=== PATIENT | female | born 1990 | race Caucasian/White ===

== ENCOUNTER 2017-04-22 14:53 | Emergency (ER) | payer OTHER ==
[2017-04-22 15:03] VITALS: BP 132/74; PULSE 97; RESP 18; TEMP 97.9
[2017-04-22] MEDS ORDERED: KETOROLAC 30 MG/ML 1 ML VIAL IVP STA (15:28)
[2017-04-22] MEDS ORDERED: SODIUM CHLORIDE 0.9% 1,000 ML IV STA (15:28)
--- NOTE | 2017-04-22 15:31 | ED ---
General Adult HPI - General Chief complaint: Abdominal Pain Stated complaint: left side pain/spotting Time Seen by Provider: 04/22/17 15:08 Source: patient, RN notes reviewed Mode of arrival: ambulatory Limitations: no limitations - History of Present Illness Initial comments: Patient 26-year-old female with no significant past medical history, presenting today with chief complaint of left lower quadrant pain that began approximately one hour ago. She admits to a "contraction" like pain in proximal hour ago. Patient states that it's been constant. Currently rates it 08/21. Denies any radiation. Patient admits to increased urinary frequency. Denies any other associated symptoms. Patient denies any recent fever, chills, shortness of breath, chest pain, back pain, nausea or vomiting, numbness or tingling, hematuria, constipation or diarrhea, headaches or visual changes, or any other complaints. - Related Data Home Medications Medication Instructions Recorded Confirmed ALPRAZolam [Xanax] 0.25 mg PO Q8HR PRN 04/22/17 04/22/17 Acetaminophen [Tylenol Extra 1,000 mg PO Q6H PRN 04/22/17 04/22/17 Strength] Phentermine HCl [Adipex-P] 37.5 mg PO QAM PRN 04/22/17 04/22/17 Allergies Allergy/AdvReac Type Severity Reaction Status Date / Time No Known Allergies Allergy Verified 04/22/17 15:30 Review of Systems ROS Statement: Those systems with pertinent positive or pertinent negative responses have been documented in the HPI. ROS Other: All systems not noted in ROS Statement are negative. Past Medical History Past Medical History: No Reported History Additional Past Medical History / Comment(s): miscarriage of twins in august 2013 , ectopic History of Any Multi-Drug Resistant Organisms: None Reported Past Surgical History: Ear Surgery Additional Past Surgical History / Comment(s): ear Past Psychological History: No Psychological Hx Reported Smoking Status: Current every day smoker Past Alcohol Use History: None Reported Past Drug Use History: None Reported General Exam - General Exam Comments Initial Comments: General: The patient is awake and alert, in no distress, and does not appear acutely ill. Eye: Pupils are equal, round and reactive to light, extra-ocular movements are intact. No nystagmus. There is normal conjunctiva bilaterally. Ears, nose, mouth and throat: There are moist mucous membranes and no oral lesions. Neck: The neck is supple, there is no tenderness or JVD. Cardiovascular: There is a regular rate and rhythm. No murmur, rub or gallop is appreciated. Respiratory: Lungs are clear to auscultation, respirations are non-labored, breath sounds are equal. No wheezes, stridor, rales, or rhonchi. Gastrointestinal: Soft, non-distended. Mild tenderness on exam to left lower quadrant. No rebound tenderness. No guarding. No CVA tenderness. Musculoskeletal: Normal ROM, no tenderness. Strength 5/5. Sensation intact. Pulses equal bilaterally 2+. Neurological: A&O x 3. CN II-XII intact, There are no obvious motor or sensory deficits. Coordination appears grossly intact. Speech is normal. Skin: Skin is warm and dry and no rashes or lesions are noted. Psychiatric: Cooperative, appropriate mood & affect, normal judgment. Limitations: no limitations Course Vital Signs 04/22/17 14:59 Temperature 97.9 F Pulse Rate 97 Respiratory 18 Rate Blood Pressure 132/74 O2 Sat by Pulse 100 Oximetry Medical Decision Making - Medical Decision Making Patient 26-year-old female presenting today with chief complaint of left lower quadrant tenderness or hour before coming here to the emergency room. Patient' s urine sample was positive for . Beta hCG was added 2500. Patient's ultrasound does show evidence for ectopic . 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 Simms will give dose of methotrexate here in the emergency room and discharged patient to follow-up in the office. - Lab Data Result diagrams: 04/22/17 15:41 04/22/17 15:41 Lab Results 04/22/17 04/22/17 04/22/17 Range/Units 15:41 15:41 15:41 WBC 13.5 H (3.8-10.6) k/uL RBC 4.82 (3.80-5.40) m/uL Hgb 14.6 (11.4-16.0) gm/dL Hct 42.5 (34.0-46.0) % MCV 88.2 (80.0-100.0) fL MCH 30.3 (25.0-35.0) pg MCHC 34.4 (31.0-37.0) g/dL RDW 13.0 (11.5-15.5) % Plt Count 238 (150-450) k/uL Neutrophils % 79 % Lymphocytes % 13 % Monocytes % 4 % Eosinophils % 3 % Basophils % 0 % Neutrophils # 10.7 H (1.3-7.7) k/uL Lymphocytes # 1.8 (1.0-4.8) k/uL Monocytes # 0.5 (0-1.0) k/uL Eosinophils # 0.4 (0-0.7) k/uL Basophils # 0.0 (0-0.2) k/uL Sodium 142 (137-145) mmol/L Potassium 4.1 (3.5-5.1) mmol/L Chloride 107 (98-107) mmol/L Carbon Dioxide 23 (22-30) mmol/L Anion Gap 12 mmol/L BUN 13 (7-17) mg/dL Creatinine 0.79 (0.52-1.04) mg/dL Est GFR (CKD-EPI)AfAm >90 (>60 ml/min/1.73 sqM) Est GFR (CKD-EPI)NonAf >90 (>60 ml/min/1.73 sqM) Glucose 87 (74-99) mg/dL Calcium 9.5 (8.4-10.2) mg/dL Total Bilirubin 0.8 (0.2-1.3) mg/dL AST 24 (14-36) U/L ALT 35 (9-52) U/L Alkaline Phosphatase 61 (38-126) U/L Total Protein 7.3 (6.3-8.2) g/dL Albumin 4.5 (3.5-5.0) g/dL Amylase 34 (30-110) U/L Lipase 53 (23-300) U/L HCG, Quant 2524.8 mIU/mL Urine Color Urine Appearance (Clear) Urine pH (5.0-8.0) Ur Specific Graham (1.001-1.035) Urine Protein (Negative) Urine Glucose (UA) (Negative) Urine Ketones (Negative) Urine Blood (Negative) Urine Nitrite (Negative) Urine Bilirubin (Negative) Urine Urobilinogen (<2.0) mg/dL Ur Leukocyte Esterase (Negative) Urine WBC (0-5) /hpf Ur Squamous Epith Cells (0-4) /hpf Amorphous Sediment (None) /hpf Urine Mucus (None) /hpf Urine HCG, Qual (Not Detectd) Blood Type Blood Type Recheck 04/22/17 04/22/17 04/22/17 Range/Units 15:41 15:45 15:45 WBC (3.8-10.6) k/uL RBC (3.80-5.40) m/uL Hgb (11.4-16.0) gm/dL Hct (34.0-46.0) % MCV (80.0-100.0) fL MCH (25.0-35.0) pg MCHC (31.0-37.0) g/dL RDW (11.5-15.5) % Plt Count (150-450) k/uL Neutrophils % % Lymphocytes % % Monocytes % % Eosinophils % % Basophils % % Neutrophils # (1.3-7.7) k/uL Lymphocytes # (1.0-4.8) k/uL Monocytes # (0-1.0) k/uL Eosinophils # (0-0.7) k/uL Basophils # (0-0.2) k/uL Sodium (137-145) mmol/L Potassium (3.5-5.1) mmol/L Chloride (98-107) mmol/L Carbon Dioxide (22-30) mmol/L Anion Gap mmol/L BUN (7-17) mg/dL Creatinine (0.52-1.04) mg/dL Est GFR (CKD-EPI)AfAm (>60 ml/min/1.73 sqM) Est GFR (CKD-EPI)NonAf (>60 ml/min/1.73 sqM) Glucose (74-99) mg/dL Calcium (8.4-10.2) mg/dL Total Bilirubin (0.2-1.3) mg/dL AST (14-36) U/L ALT (9-52) U/L Alkaline Phosphatase (38-126) U/L Total Protein (6.3-8.2) g/dL Albumin (3.5-5.0) g/dL Amylase (30-110) U/L Lipase (23-300) U/L HCG, Quant mIU/mL Urine Color Yellow Urine Appearance Turbid H (Clear) Urine pH 7.5 (5.0-8.0) Ur Specific Graham 1.020 (1.001-1.035) Urine Protein Trace H (Negative) Urine Glucose (UA) Negative (Negative) Urine Ketones Negative (Negative) Urine Blood Moderate H (Negative) Urine Nitrite Negative (Negative) Urine Bilirubin Negative (Negative) Urine Urobilinogen <2.0 (<2.0) mg/dL Ur Leukocyte Esterase Large H (Negative) Urine WBC 12 H (0-5) /hpf Ur Squamous Epith Cells 11 H (0-4) /hpf Amorphous Sediment Occasional H (None) /hpf Urine Mucus Rare H (None) /hpf Urine HCG, Qual Detected (Not Detectd) Blood Type O Positive Blood Type Recheck No Disposition Clinical Impression: Ectopic Disposition: HOME SELF-CARE Condition: Good Instructions: Ectopic (ED) Additional Instructions: Please follow-up with MACHINE OPERATOR CANE CUTTER as discussed here in emergency room. Please return to emergency room if any symptoms increase or worsen or for any other concerns. Referrals: None,Stated [Primary Care Provider] - 1-2 days Humberto Mccall MD [STAFF PHYSICIAN] - 1-2 days Time of Disposition: 19:30
[2017-04-22 15:50] LABS: Basophils % (A) 0 %; Eosinophils # (A) 0.4 k/uL (0-0.7); Eosinophils % (A) 3 %; HCT 42.5 % (34.0-46.0); HGB 14.6 gm/dL (11.4-16.0); Lymphocytes # (A) 1.8 k/uL (1.0-4.8); Lymphocytes % (A) 13 %; MCH 30.3 pg (25.0-35.0); MCHC 34.4 g/dL (31.0-37.0); MCV 88.2 fL (80.0-100.0); Mean Platelet Volume 7.7; Monocytes # (A) 0.5 k/uL (0-1.0); Monocytes % (A) 4 %; Neutrophils # (A) 10.7 k/uL (1.3-7.7); Neutrophils % (A) 79 %; Platelet Count 238 k/uL (150-450); RBC 4.82 m/uL (3.80-5.40); WBC 13.5 k/uL (3.8-10.6)
[2017-04-22 16:00] LABS: ALT 35 U/L (9-52); AST 24 U/L (14-36); Albumin 4.5 g/dL (3.5-5.0); Alkaline Phosphatase 61 U/L (38-126); Amylase 34 U/L (30-110); Anion Gap 12 mmol/L; Blood Urea Nitrogen 13 mg/dL (7-17); Calcium 9.5 mg/dL (8.4-10.2); Carbon Dioxide 23 mmol/L (22-30); Chloride 107 mmol/L (98-107); Glucose 87 mg/dL (74-99); Lipase 53 U/L (23-300); Potassium 4.1 mmol/L (3.5-5.1); Sodium 142 mmol/L (137-145); Total Bilirubin 0.8 mg/dL (0.2-1.3); Total Protein 7.3 g/dL (6.3-8.2)
[2017-04-22 16:05] LABS: Amorphous Sediment,Urine Occasional /hpf; Appearance,Urine Turbid (Clear); Bilirubin,Urine Negative (Negative); Blood,Urine Moderate (Negative); Color,Urine Yellow; Glucose,Urine (UA) Negative (Negative); Ketones,Urine Negative (Negative); Leukocyte Esterase,Urine Large (Negative); Mucus,Urine Rare /hpf; Nitrite,Urine Negative (Negative); PH, Urine 7.5 (5.0-8.0); Protein,Urine Trace (Negative); Squamous Epithelial Cell,Urine 11 /hpf (0-4); Urobilinogen,Urine <2.0 mg/dL (<2.0); WBC,Urine 12 /hpf (0-5)
--- NOTE | 2017-04-22 16:59 | US ---
EXAMINATION TYPE: US OB <=14 wks transvag DATE OF EXAM: 04/22/2017 COMPARISON: NONE CLINICAL HISTORY: pain. Left sided pain. Exam was ordered as transvaginal through the ER, but received a call urine HCG was positive at end of transvaginal exam. EXAM PERFORMED: Transvaginal (TV) and Transabdominal (TA) EXAM MEASUREMENTS: GESTATIONAL AGE / DATING Dates by LMP: (6 weeks/5 days) EDC: 12/11/2017 Dates by Current Scan: No IUP seen MATERNAL ANATOMY Uterus: 9.6 x 6.5 x 5.4 cm Right Ovary: 3.1 x 1.8 x 2.2 cm Left Ovary: 3.7 x 2.8 x 2.6 cm Post CDS / Adnexa: Free fluid Presence of free fluid: cul de sac Presence of corpus luteal cyst: Left ovarian lesion = 2.1 x 2.1 x 2.0 cm GESTATION / SURVEY MSD: No GS seen in the uterus IUP: No IUP seen at this time Date of LMP: 03/06/2017, Beta HcG (if available): Not available at this time No IUP seen. Endometrium appears thickened with movement seen. Complex lesion seen between uterus a nd left ovary - 1.4 x 1.2 x 1.1 cm with yolk sac and gestational sac. IMPRESSION: Acute left-sided adnexal ectopic . Gestational sac and yolk sac within the left adnexa heavenly tible with ectopic adjacent to the left ovary. Moderate amount of complex fluid within the pelvis can be seen in rupture cases. Thickening of the endometrium represents decidual reaction. Find ings were communicated with the ER physician Dr. Dove by Dr. Maharaj at 1654 PM on 04/22/2017.
[2017-04-22] MEDS ORDERED: METHOTREXATE SODIUM (PF) 25 MG/ML 2 ML VIAL IM ONE (19:24)
--- NOTE | 2017-04-22 19:24 | P.OBCN ---
History of Present Illness Consult date: 04/22/17 Requesting physician: Wagner Dove Reason for consult: other (Left ectopic ) Chief complaint: Acute left lower quadrant pain History of present illness: The patient is a 26-year-old 9 para 2151 who presented to the emergency room today with some acute left lower quadrant pain. Her last menstrual period was around March 06 but she has a history of very irregular menses. She was not aware that she was . In the emergency department, she was found the hormone level in the range of 2300. Pelvic ultrasound demonstrated what appears to be a left ectopic measuring 1.4 cm in greatest dimension, likely in the ampulla of the left fallopian tube. There was some free fluid in the cul-de-sac. She does have a history of a previous left ectopic discovered early on and treated with methotrexate. She denies any significant nausea and vomiting and has no secondary illnesses that would contraindicate methotrexate again. She has had multiple miscarriages as well as the previous ectopic but has had a normal vaginal delivery since her last ectopic . She is reporting some vaginal bleeding but has no other secondary symptoms to include GI concerns or nausea and vomiting. There is no urinary complaints either. Obstetrical history: 9 para 2152 with 2 term vaginal deliveries, a 21 week loss of twins, 4 miscarriages some requiring D&C, and 1 ectopic treated with methotrexate. As noted above, she was unaware of being at this time and has no other symptoms. She has not been using contraception. Gynecologic history: She has remote history of chlamydia as a teenager but denies any STDs since that time. Review of Systems Review of systems is confined to history of present illness. Past Medical History Past Medical History: No Reported History Additional Past Medical History / Comment(s): miscarriage of twins in august 2013 , ectopic History of Any Multi-Drug Resistant Organisms: None Reported Past Surgical History: Ear Surgery Additional Past Surgical History / Comment(s): ear Past Psychological History: No Psychological Hx Reported Smoking Status: Current every day smoker Past Alcohol Use History: None Reported Past Drug Use History: None Reported Medications and Allergies Home Medications Medication Instructions Recorded Confirmed Type ALPRAZolam [Xanax] 0.25 mg PO Q8HR PRN 04/22/17 04/22/17 History Acetaminophen [Tylenol Extra 1,000 mg PO Q6H PRN 04/22/17 04/22/17 History Strength] Phentermine HCl [Adipex-P] 37.5 mg PO QAM PRN 04/22/17 04/22/17 History Allergies Allergy/AdvReac Type Severity Reaction Status Date / Time No Known Allergies Allergy Verified 04/22/17 15:30 Exam - Vital Signs Vital signs: Vital Signs Temp Pulse Resp BP Pulse Ox 04/22/17 14:59 97.9 F 97 18 132/74 100 Intake and Output 04/22/17 04/22/17 04/22/17 06:59 14:59 22:59 Other: Weight 99.79 kg Patient Weight 04/23/17 06:59 Weight 99.79 kg In general, this is a well-developed, mild to moderately obese white female in no acute distress. Her heart has a regular rhythm and rate without murmur. Her lungs are clear to auscultation bilaterally in all bella. Her abdomen is mild to moderately obese, non-distended, has normal active bowel sounds, is soft , nontender, and without any palpable masses, hepatosplenomegaly, or hernias. There is no guarding or rebound. Her extremities are without any cyanosis, clubbing, or edema and are nontender to palpation bilaterally. Bimanual pelvic examination done traits normal external genitalia and BUS with normal vaginal mucosa and cervix to palpation. There is no cervical motion tenderness. Uterus is approximate 5 weeks in size, midplane, mobile, nontender, normal in shape. The adnexa are normal and nontender without mass or tenderness bilaterally. Results Result Diagrams: 04/22/17 15:41 04/22/17 15:41 Abnormal Lab Results - Last 24 Hours (Table) 04/22/17 04/22/17 Range/Units 15:41 15:45 WBC 13.5 H (3.8-10.6) k/uL Neutrophils # 10.7 H (1.3-7.7) k/uL Urine Appearance Turbid H (Clear) Urine Protein Trace H (Negative) Urine Blood Moderate H (Negative) Ur Leukocyte Esterase Large H (Negative) Urine WBC 12 H (0-5) /hpf Ur Squamous Epith Cells 11 H (0-4) /hpf Amorphous Sediment Occasional H (None) /hpf Urine Mucus Rare H (None) /hpf Assessment and Plan (1) Ectopic Current Visit: Yes Status: Acute Code(s): O00.90 - UNSPECIFIED ECTOPIC WITHOUT INTRAUTERINE SNOMED Code(s): 78369246 Plan: The size of the gestational sac at a maximum of 1.4 cm as well as the beta hCG at under 5000 units make her perfect candidate for methotrexate therapy. She is entirely hemodynamically stable. She has experience with this treatment in the past. I have counseled her regarding the options but feel that a surgical approach would be possibly fruitless given the size of the ectopic , it may not be located laparoscopically. As result, we have agreed to proceed with methotrexate therapy. She will be given a dose of 50 mg per meter squared , dosing to be done by pharmacy, intramuscularly 1 dose. All necessary labs including type and screen, CBC, AST and ALT, and beta-hCG had been performed. I have asked her to follow up in my office in 1 week's time for repeat beta hCG. She was given warning signs for potential rupture with significantly increasing pain or signs of orthostasis. I did warn her that she may have some slightly increased pain before the pain begins to improved secondary to involution of the . She has understood all this and agreed to proceed. Following administration of the methotrexate, the patient may be discharged to follow-up as noted above.
== END 2017-04-22 20:20 | disposition home or self-care (01) ==
LOC: EC 14:53
DX: O00.90 Unspecified ectopic pregnancy without intrauterine pregnancy (principal); F17.200 Nicotine dependence, unspecified, uncomplicated; Z3A.01 Less than 8 weeks gestation of pregnancy
CPT/HCPCS: 36415; 86900; 86901; 80053; 82150; 83690; 85025; 81001; 81025; 84702; 87086; 76801; 76817; 99285; 96374; 96361; 96372; J9260; J1885

== ENCOUNTER → 2017-04-30 | Outpatient (CLI) | payer OTHER ==
[~2017-04-30] MED LIST: METHOTREXATE SODIUM (PF) 25 MG/ML 2 ML VIAL IM ONE
[2017-04-30 14:50] VITALS: BP 107/70; PULSE 92; RESP 18; TEMP 98.1
== END | disposition home or self-care (01) ==
LOC: PROCWHC3 14:31
PROVIDERS: ATTEND Obstetrics & Gynecology
DX: O00.109 Unspecified tubal pregnancy without intrauterine pregnancy (principal); Z3A.00 Weeks of gestation of pregnancy not specified
CPT/HCPCS: 96402; J9260

== ENCOUNTER → 2017-04-30 | Outpatient (CLI) | payer OTHER ==
[2017-04-30 08:40] LABS: HCT 41.1 % (34.0-46.0); HGB 13.8 gm/dL (11.4-16.0); MCH 30.4 pg (25.0-35.0); MCHC 33.5 g/dL (31.0-37.0); MCV 90.8 fL (80.0-100.0); Mean Platelet Volume 7.2; Platelet Count 303 k/uL (150-450); RBC 4.53 m/uL (3.80-5.40); RDW 13.3 % (11.5-15.5); WBC 8.8 k/uL (3.8-10.6)
[2017-04-30 08:57] LABS: AST 19 U/L (14-36); Blood Urea Nitrogen 8 mg/dL (7-17)
[2017-04-30 09:09] LABS: HCG,Quantitative Serum 3299.1 mIU/mL
== END | disposition home or self-care (01) ==
LOC: LABWHC1 07:57
PROVIDERS: ATTEND Obstetrics & Gynecology
DX: O00.109 Unspecified tubal pregnancy without intrauterine pregnancy (principal); Z3A.00 Weeks of gestation of pregnancy not specified
CPT/HCPCS: 36415; 82565; 84450; 84520; 84702; 85027

== ENCOUNTER → 2017-05-14 | Outpatient (CLI) | payer OTHER | END | disposition home or self-care (01) | LOC: LABWHC1 08:16 | PROVIDERS: ATTEND Obstetrics & Gynecology | DX: O00.109 Unspecified tubal pregnancy without intrauterine pregnancy (principal); Z3A.00 Weeks of gestation of pregnancy not specified | CPT/HCPCS: 36415; 84702 ==

== ENCOUNTER → 2019-03-25 | Outpatient (CLI) | payer OTHER ==
--- NOTE | 2019-03-25 15:21 | US ---
EXAMINATION TYPE: US pelvis complete transvag DATE OF EXAM: 03/25/2019 COMPARISON: NONE CLINICAL HISTORY: N91.2 Amenorrhea, unspecified. TECHNIQUE: Transvaginal (TV) and Transabdominal (TA) . Transabdominal sonographic images of the pel vis were acquired. Transvaginal sonographic images were medically necessary to better assess the fol lowing anatomy: Date of LMP: November EXAM MEASUREMENTS: Uterus: 9.0 x 4.3 x 5.0 cm Endometrial Stripe: 1.0 cm Right Ovary: 3.0 x 2.2 x 2.3 cm Left Ovary: 3.8 x 2.2 x 2.3 cm 1. Uterus: Anteverted wnl 2. Endometrium: irregular shaped fluid collection measuring 0.7 x 0.3 x 0.7cm 3. Right Ovary: wnl 4. Left Ovary: dominant follicle noted 5. Bilateral Adnexa: wnl 6. Posterior cul-de-sac: wnl IMPRESSION: 1. Endometrial fluid collection of uncertain etiology.
== END | disposition home or self-care (01) ==
LOC: RADUSWWP 13:27
PROVIDERS: ATTEND Obstetrics & Gynecology
DX: N91.2 Amenorrhea, unspecified (principal)
CPT/HCPCS: 76830; 76856